=== PATIENT | male | born 1980 | race Two or more races ===

== ENCOUNTER 2017-08-29 14:39 | Inpatient (IN) | payer MEDICAID ==
[~2017-08-29] VITALS: Ht 177.8 cm; Wt 84.4 kg
[2017-08-29] MEDS ORDERED: Dexamethasone 4mg/ml vial IVP ONE (15:45)
--- NOTE | 2017-08-29 16:07 | Emergency Room Report ---
History of Present Illness General Chief Complaint: General Complaint Source: Patient Present Illness HPI Patient is a 37-year-old male who presented after increased difficulty breathing. Patient recently had a x-ray imaging done at the his doctor's office. The patient was noted to have some difficulty breathing worse with supine position. Patient was noted to be taking multiple pain medications. He had the surgery 1 day prior to arrival. Patient is being followed by Dr. Omar Christianson Allergies: Coded Allergies: No Known Allergies (Unverified , 08/29/17) Patient History Reviewed Nursing Documentation: PMH: Agreed; PSxH: Agreed Nursing Documentation-PMH Past Medical History: No Stated History Review of Systems All Other Systems: negative except mentioned in HPI Physical Exam Vital Signs Date Time Temp Pulse Resp B/P (MAP) Pulse Ox O2 Delivery O2 Flow Rate FiO2 08/29/17 14:42 98.4 83 22 124/73 96 Room Air 98.4 Sp02 EP Interpretation: reviewed, normal General Appearance: normal inspection, well appearing, no apparent distress, alert, GCS 15 Head: atraumatic ENT: normal ENT inspection, hearing grossly normal, normal voice Neck: normal inspection, supple, no bony tend, limited range of motion Respiratory: normal inspection, lungs clear, normal breath sounds, no respiratory distress, no retraction, no wheezing Cardiovascular #1: regular rate, rhythm, no edema Gastrointestinal: normal inspection, normal bowel sounds, non tender, soft, no guarding, no hernia Genitourinary: no CVA tenderness Musculoskeletal: normal inspection, back normal, normal range of motion Neurologic: normal inspection, alert, oriented x3, responsive, department head III-XII nml as tested, speech normal Psychiatric: normal inspection, judgement/insight normal, mood/affect normal Skin: no rash, other - slight swelling to surgical site, no drainage noted Medical Decision Making Diagnostic Impression: Primary Impression: Hematoma Additional Impression: Status post neck surgery, follow-up exam ER Course Patient presented for neck pain and difficulty breathing postoperatively. Differential diagnosis included was not limited to abscess, retropharyngeal hematoma, epiglottitis, allergic reaction among others.Because of complexity of patient's case laboratory testing and imaging studies were ordered. The patient was seen by ENT Dr. Jaime Bertrand. The patient was noted to have some soft tissue swelling near incision. The patient be admitted for further monitoring and repeat x-rays. Patient was given IV Decadron as well as IV antibiotics. At time of admission patient shows no evidence of airway obstruction or stridor. Given the patient's prior imaging showing some hematoma patient will be watched inpatient in the hospital. The patient's physician does not appear to be infected however he was given Decadron due inflammation of the neck.Dr. Ken Mann was contacted for inpatient management Labs Test 08/29/17 15:38 White Blood Count 10.3 K/UL (4.8-10.8) Red Blood Count 6.81 M/UL (4.70-6.10) Hemoglobin 13.2 G/DL (14.2-18.0) Hematocrit 42.4 % (42.0-52.0) Mean Corpuscular Volume 62 FL (80-99) Mean Corpuscular Hemoglobin 19.4 PG (27.0-31.0) Mean Corpuscular Hemoglobin Concent 31.1 G/DL (32.0-36.0) Red Cell Distribution Width 12.4 % (11.6-14.8) Platelet Count 123 K/UL (150-450) Mean Platelet Volume 15.6 FL (6.5-10.1) Neutrophils (%) (Auto) 60.5 % (45.0-75.0) Lymphocytes (%) (Auto) 28.1 % (20.0-45.0) Monocytes (%) (Auto) 9.0 % (1.0-10.0) Eosinophils (%) (Auto) 1.0 % (0.0-3.0) Basophils (%) (Auto) 1.3 % (0.0-2.0) Prothrombin Time 10.4 SEC (9.30-11.50) Prothromb Time International Ratio 1.0 (0.9-1.1) Activated Partial Thromboplast Time 29 SEC (23-33) Sodium Level 139 MMOL/L (136-145) Potassium Level 3.8 MMOL/L (3.5-5.1) Chloride Level 102 MMOL/L (98-107) Carbon Dioxide Level 28 MMOL/L (21-32) Anion Gap 9 mmol/L (5-15) Blood Urea Nitrogen 9 mg/dL (7-18) Creatinine 0.9 MG/DL (0.55-1.30) Estimat Glomerular Filtration Rate > 60 mL/min (>60) Glucose Level 89 MG/DL (74-106) Calcium Level 8.5 MG/DL (8.5-10.1) Total Bilirubin 0.9 MG/DL (0.2-1.0) Aspartate Amino Transf (AST/SGOT) 22 U/L (15-37) Alanine Aminotransferase (ALT/SGPT) 41 U/L (12-78) Alkaline Phosphatase 54 U/L (46-116) Total Protein 7.5 G/DL (6.4-8.2) Albumin 4.1 G/DL (3.4-5.0) Globulin 3.4 g/dL Albumin/Globulin Ratio 1.2 (1.0-2.7) Last Vital Signs Date Time Temp Pulse Resp B/P (MAP) Pulse Ox O2 Delivery O2 Flow Rate FiO2 08/29/17 14:42 98.4 83 22 124/73 96 Room Air 98.4 Status: unchanged Disposition: ADMITTED INPATIENT Condition: Stable TenzinJulio Aug 29, 2017 16:07
[2017-08-29 16:09] LABS: BASOPHILS % (AUTO) 1.3 % (0.0-2.0); HEMATOCRIT 42.4 % (42.0-52.0); HEMOGLOBIN 13.2 G/DL (14.2-18.0); LYMPHOCYTES % (AUTO) 28.1 % (20.0-45.0); MEAN CORPUSCULAR VOLUME 62 FL (80-99); NEUTROPHILS % (AUTO) 60.5 % (45.0-75.0); PLATELET COUNT 123 K/UL (150-450); RED BLOOD COUNT 6.81 M/UL (4.70-6.10); RED CELL DISTRIBUTION WIDTH 12.4 % (11.6-14.8); WHITE BLOOD COUNT 10.3 K/UL (4.8-10.8)
[2017-08-29 16:16] LABS: ANION GAP 9 mmol/L (5-15); BLOOD UREA NITROGEN 9 mg/dL (7-18); CALCIUM 8.5 MG/DL (8.5-10.1); CARBON DIOXIDE 28 MMOL/L (21-32); CHLORIDE 102 MMOL/L (98-107); CREATININE 0.9 MG/DL (0.55-1.30); POTASSIUM 3.8 MMOL/L (3.5-5.1); SODIUM 139 MMOL/L (136-145)
[2017-08-29 16:20] LABS: ALANINE AMINOTRANSFERASE 41 U/L (12-78); ALBUMIN 4.1 G/DL (3.4-5.0); ALBUMIN/GLOBULIN RATIO 1.2 (1.0-2.7); ALKALINE PHOSPHATASE 54 U/L (46-116); ASPARTATE AMINO TRANSFERASE 22 U/L (15-37); BILIRUBIN,TOTAL 0.9 MG/DL (0.2-1.0)
[2017-08-29 16:27] VITALS: BP 127/77
[2017-08-29] MEDS ORDERED: NORCO 10-325 T1 EACH ORAL (16:32)
[2017-08-29] MEDS ORDERED: Ampicillin/Sulbactam Sod 3 GM in NS 110 ML IVPB ONE (17:00)
[2017-08-29] MEDS ORDERED: MORPHINE 44 MG/1 ML IV (17:37)
[2017-08-29] MEDS ORDERED: XANAX1 MG ORAL (17:38)
[2017-08-29] MEDS ORDERED: Morphine Sulfate 4mg/ml Inj IVP ONE (17:45)
[2017-08-29 18:17] VITALS: BP 118/71
[2017-08-29] MEDS ORDERED: Morphine Sulfate 4mg/ml Inj IVP PRN (18:45)
[2017-08-29 20:00] VITALS: BP 120/73
--- NOTE | 2017-08-29 21:06 | History & Physical ---
History and Physical History & Physicial Job 3 [id number] Ken Mann MD Aug 29, 2017 21:06
[2017-08-29] MEDS: Morphine Sulfate 4mg/ml Inj IVP PRN (21:25)
--- NOTE | 2017-08-29 22:23 | General Progress Note ---
Assessment/Plan Status: stable Status Narrative Pt will most probably be just fine Have suggested he stay overnight for some better pain control and Decadron with tapering. Assessment/Plan As in status narrative above. Subjective Date patient seen: Aug 29, 2017 Time patient seen: 03:30 ROS Limited/Unobtainable: No Constitutional: Reports: weakness HEENT: Reports: throat pain, throat swelling Cardiovascular: Reports: no symptoms Respiratory: Reports: no symptoms, shortness of breath Gastrointestinal/Abdominal: Reports: no symptoms Genitourinary: Reports: no symptoms Neurologic/Psychiatric: Reports: no symptoms Endocrine: Reports: no symptoms Hematologic/Lymphatic: Reports: no symptoms Allergies: Coded Allergies: No Known Allergies (Unverified , 08/29/17) Subjective pt had cervical sine surgery yesterday, concerned about pain and swelling. States hard to swallow and breathe, Is able to count to 10 laying down and take pain pills. Pain 7/10 per pt girlfriend who is translating. Objective Last 24 Hour Vital Signs Date Time Temp Pulse Resp B/P (MAP) Pulse Ox O2 Delivery O2 Flow Rate FiO2 08/29/17 21:55 96.3 08/29/17 21:25 96.3 08/29/17 20:00 96.3 78 18 120/73 97 Room Air 96.3 08/29/17 18:30 98.4 71 17 118/71 97 Room Air 98.4 08/29/17 18:17 98.4 71 17 118/71 97 Room Air 98.4 08/29/17 18:06 98.4 08/29/17 17:36 98.4 08/29/17 16:27 98.4 78 20 127/77 100 Room Air 98.4 08/29/17 14:42 98.4 83 22 124/73 96 Room Air 98.4 Laboratory Tests 08/29/17 15:38: White Blood Count 10.3, Red Blood Count 6.81H, Hemoglobin 13.2L, Hematocrit 42.4 , Mean Corpuscular Volume 62L, Mean Corpuscular Hemoglobin 19.4L, Mean Corpuscular Hemoglobin Concent 31.1L, Red Cell Distribution Width 12.4, Platelet Count 123L, Mean Platelet Volume 15.6H, Neutrophils (%) (Auto) 60.5, Lymphocytes (%) (Auto) 28.1, Monocytes (%) (Auto) 9.0, Eosinophils (%) (Auto) 1.0, Basophils (%) (Auto) 1.3, Prothrombin Time 10.4, Prothromb Time International Ratio 1.0, Activated Partial Thromboplast Time 29, Sodium Level 139, Potassium Level 3.8, Chloride Level 102, Carbon Dioxide Level 28, Anion Gap 9, Blood Urea Nitrogen 9, Creatinine 0.9, Estimat Glomerular Filtration Rate > 60, Glucose Level 89, Calcium Level 8.5, Total Bilirubin 0.9, Aspartate Amino Transf (AST/SGOT) 22, Alanine Aminotransferase (ALT/SGPT) 41, Alkaline Phosphatase 54, Total Protein 7.5, Albumin 4.1, Globulin 3.4, Albumin/Globulin Ratio 1.2 Height (Feet): 5 Height (Inches): 10.00 Weight (Pounds): 186 EENT: TMs normal, pharynx normal Neck: stiff neck Lymphatic: normal anterior cervical (L), normal posterior cervical (L), normal posterior cervical (R), normal submandibular (L), normal submandibular (R), normal supraclavicular (L), normal supraclavicular (R); tender anterior cervical (R) Objective Neck: tender right lower neck, normal post op swelling cross lateral of neck from Dr. Christianson office-indicates minimal swelling in area of surgery. Fiberoptic laryngoscopy-WNL, no airway obstruction. MALLIKA COYLE Aug 29, 2017 22:23
--- NOTE | 2017-08-29 22:45 | History and Physical Report ---
DATE OF ADMISSION: 08/29/2017 CHIEF COMPLAINT: Difficulty swallowing. HISTORY OF PRESENT ILLNESS: This is a 37 years old Spanish gentleman with past medical history significant for cervical disk disease, status post anterior cervical surgery, who presented to the hospital as per request by Dr. Omar Christianson after he was noted to have difficulty breathing and difficulty swallowing. The patient had a cervical spine x-ray done showed that the retropharyngeal hematoma and subsequently the patient was advised to come to the emergency room. Shortly after initial evaluation in the emergency, the patient was admitted to the hospital with a retropharyngeal hematoma postop. PAST MEDICAL HISTORY AND PAST SURGICAL HISTORY: Significant for cervical disk disease, [facility] MEDICATIONS: At home, please refer to medication reconciliation. ALLERGIES: No known drug allergies. SOCIAL HISTORY: Denies any smoking, alcohol, or drugs. FAMILY HISTORY: Noncontributory. REVIEW OF SYSTEMS: Mostly as above. Denies any dysuria, frequency, hematuria, or hematochezia. Complaining about difficulty swallowing food. Complaining about shortness of breath. Denies any hemoptysis or hematochezia. Denies any suicidal or homicidal ideations. PHYSICAL EXAMINATION: VITAL SIGNS: On admission, temperature 98.4, pulse of 83, respiration 22, and blood pressure 124/73. GENERAL: The patient is awake, responsive, no acute distress. HEAD AND NECK: Pupils are reactive to light. Extraocular movements are intact. NECK: Supple. Tender to touch and dressing on the right side of neck was noted. No sign of infection. No sign of discharge. LUNGS: Good air entry. No wheezing or rales. HEART: S1, S2. Regular rhythm. No gallops. ABDOMEN: Soft, nondistended, and nontender. Positive bowel sounds. EXTREMITIES: No cyanosis, clubbing, or edema. NEUROLOGIC: Cranial nerves II through XII grossly intact. Motor is 5/5 in all extremities. LABORATORY AND DIAGNOSTIC DATA: Laboratory on admission, sodium 139, potassium 3.8, chloride 102, bicarbonate 28, BUN 9, creatinine 0.9, and glucose is 89. Liver functions essentially unremarkable. WBC of 10.3, hemoglobin 13, hematocrit 42, and platelets is 123. PT of 10, INR 1.0, and PTT of 29. ASSESSMENT: 1. Neck pain as well as difficulty swallowing, most likely secondary to retropharyngeal hematoma. 2. History of cervical disk disease, status post cervical disk surgery. PLAN: Admit the patient to Med/Surg. We will follow up laboratory. Decadron IV every eight hours, taper down. Follow up with Dr. Omar Christianson on recommendations from Spine Surgery as well as Dr. Jaime Bertrand from ENT. Start the patient on IV fluids. Code Status, Full code. DVT prophylaxis is SCD. Ken Mann M.D. DR: JHONNY JOB#: [id number] CC:
[2017-08-29] MEDS: Dexamethasone 4mg/ml vial IVP SCH (23:34)
[2017-08-30] VITALS: BP 117/68
[2017-08-30 04:00] VITALS: BP 114/60
[2017-08-30] MEDS: Morphine Sulfate 4mg/ml Inj IVP PRN ×3 (05:17→11:53)
--- NOTE | 2017-08-30 06:00 | Operative Note - Dictated ---
DATE OF OPERATION: 08/29/2017 NOTE: POOR AUDIO SURGEON: Jaime Bertrand M.D. INDICATION FOR PROCEDURE: The patient complained of swelling in throat, status post 24 hours cervical spine surgery. PREOPERATIVE DIAGNOSIS: Airway obstruction. POSTOPERATIVE DIAGNOSIS: No airway obstruction. FINDINGS: Swelling in the lateral incision site on the right neck. No blockage of the airway. PROCEDURE: Fiberoptic laryngoscopy. TECHNIQUE: The patient was prepped and draped in the usual manner. Time-out was performed. All agreed as to procedure to be done. Flexible scope was placed through the mouth without difficulty. The hypopharynx down to 1 cm below TVF was visualized both by me and the ER MD. The scope was removed. Sponge and needle count was correct. ESTIMATED BLOOD LOSS: Zero. COUNTS: None. DRAINS: None. Jaime Bertrand M.D. DR: IWONA JOB#: [id number] CC: PIO
[2017-08-30 07:22] LABS: BASOPHILS % (AUTO) 0.5 % (0.0-2.0); HEMATOCRIT 42.1 % (42.0-52.0); HEMOGLOBIN 13.3 G/DL (14.2-18.0); LYMPHOCYTES % (AUTO) 13.6 % (20.0-45.0); MEAN CORPUSCULAR VOLUME 62 FL (80-99); MONOCYTES % (AUTO) 3.4 % (1.0-10.0); NEUTROPHILS % (AUTO) 82.4 % (45.0-75.0); PLATELET COUNT 140 K/UL (150-450); RED BLOOD COUNT 6.75 M/UL (4.70-6.10); RED CELL DISTRIBUTION WIDTH 12.1 % (11.6-14.8); WHITE BLOOD COUNT 10.8 K/UL (4.8-10.8)
[2017-08-30 07:38] LABS: ALANINE AMINOTRANSFERASE 30 U/L (12-78); ALBUMIN 3.9 G/DL (3.4-5.0); ALBUMIN/GLOBULIN RATIO 1.1 (1.0-2.7); ALKALINE PHOSPHATASE 55 U/L (46-116); ANION GAP 10 mmol/L (5-15); ASPARTATE AMINO TRANSFERASE 20 U/L (15-37); BILIRUBIN,TOTAL 0.7 MG/DL (0.2-1.0); BLOOD UREA NITROGEN 12 mg/dL (7-18); CALCIUM 8.8 MG/DL (8.5-10.1); CARBON DIOXIDE 27 MMOL/L (21-32); CHLORIDE 103 MMOL/L (98-107); POTASSIUM 4.6 MMOL/L (3.5-5.1); SODIUM 140 MMOL/L (136-145)
[2017-08-30 08:00] VITALS: BP 117/69
[2017-08-30 08:03] LABS: PHOSPHORUS 3.2 MG/DL (2.5-4.9)
[2017-08-30] MEDS: Dexamethasone 4mg/ml vial IVP SCH (08:31)
--- NOTE | 2017-08-30 09:03 | Orthopedic Spine Progress Note ---
Ortho Spine - Progress Note Subjective Symptoms: improved - as compared to pre-op Objective Vital Signs: Last 24 Hour Vital Signs Date Time Temp Pulse Resp B/P (MAP) Pulse Ox O2 Delivery O2 Flow Rate FiO2 08/30/17 08:00 97.9 72 18 117/69 100 Room Air 97.9 08/30/17 05:47 96.7 08/30/17 04:00 96.7 75 18 114/60 97 96.7 08/30/17 02:04 95.8 08/30/17 01:34 95.8 08/30/17 00:00 95.8 78 19 117/68 98 Room Air 95.8 08/29/17 21:25 96.3 08/29/17 20:00 96.3 78 18 120/73 97 Room Air 96.3 08/29/17 18:30 98.4 71 17 118/71 97 Room Air 98.4 08/29/17 18:17 98.4 71 17 118/71 97 Room Air 98.4 08/29/17 18:06 98.4 08/29/17 17:36 98.4 08/29/17 16:27 98.4 78 20 127/77 100 Room Air 98.4 08/29/17 14:42 98.4 83 22 124/73 96 Room Air 98.4 I&O: Intake and Output 08/29/17 08/30/17 19:00 07:00 Intake Total 775 ml Balance 775 ml Intake Oral 250 ml IV Total 525 ml # Voids 1 1 Wound: clean, intact Drains: none Neuro Status: normal - except uln N numbness r side not improved since preop Additional Comments: breathing NL standing, supine significantly better Plan Plan: discharge plan Additional Comments: improved with steroids. OK to DC home if ok with ent IRVING WALLACE Aug 30, 2017 09:03
--- NOTE | 2017-08-30 10:57 | General Progress Note ---
Progress Note Progress Note ENT- I cannot be until after 6 PM today. Pt notes indicate he is better and he was kept as a precaution, therefore, per ENT, he may go home today without seeing me. He can always see me in the office or local ER if symptoms recur. MALLIKA COYLE Aug 30, 2017 10:57
--- NOTE | 2017-08-30 14:33 | Discharge Summary ---
Discharge Summary Hospital Course Date of Admission Aug 29, 2017 at 16:26 Date of Discharge Aug 30, 2017 at 12:04 Admitting Diagnosis retropharyngeal hematoma HPI Nimesh Chappell is a 37 year old male who was admitted on Aug 29, 2017 at 16:26 for Retropharyngeal Hematoma Hospital Course job # [id number] Discharge Discharge Disposition Patient was discharged to Home (01) Ken Mann MD Aug 30, 2017 14:33
--- NOTE | 2017-08-30 15:00 | Consultation ---
DATE OF CONSULTATION: 08/29/2017 NOTE: POOR AUDIO CONSULTING PHYSICIAN: Jaime Bertrand M.D. REFERRING PHYSICIANS: Omar Christianson M.D. and Ken Mann M.D. REASON FOR CONSULTATION: The patient had a artificial disc placed in the neck yesterday with a right anterior approach. He then saw the orthopedic surgeon today complaining of swelling and pain and difficulty breathing, although he is able to talk. The physician got a lateral x-ray showing some swelling, nothing significant. Dr. Christianson then called me and recommend the patient be seen in the emergency room approximately an hour and a half later by the time the patient got there. The patient is able to talk without difficulty lying down, although there was some swelling in the right neck over the incision site. ALLERGIES: No known drug allergies. MEDICATIONS: Include Decadron, , Zofran, and morphine sulfate to control pain. PHYSICAL EXAMINATION: VITAL SIGNS: He is 177.8 cm, weight 84.368 kilograms and BMI 26.7. Please note that his girlfriend did place , but she spoke much better [place]ian and is fluent in translating in Farsi. HEENT: Head is normocephalic. Eyes, PERRLA. EOMI, but a little he was unsure of the names. Mouth is normal. Nose normal. NECK: Tegaderm dressing. Small amount of swelling and some tenderness. Fiberoptic laryngoscopy indicated that vocal cord. ASSESSMENT AND PLAN: I think he has some pain from the surgery and some swelling. It did not appear , although he is getting a followup lateral x-ray tonight, which is not available as of 10 o'clock to my recollection . Thank you very much for asking my opinion in the care and treatment of this patient. Jaime Bertrand M.D. DR: IWONA JOB#: [id number] CC:
[2017-08-30] MEDS ORDERED: Dexamethasone 4mg/ml vial IVP SCH (16:00)
--- NOTE | 2017-08-30 22:00 | Discharge Summary ---
DATE OF ADMISSION: 08/29/2017 DATE OF DISCHARGE: 08/30/2017 HOSPITAL COURSE: This is a 37-year-old [place] gentleman with past medical history significant for cervical disc surgery due to the cervical discopathy by Dr. Omar Christianson, who presented to the hospital, complained about the difficulty swallowing and shortly after initial evaluation, the patient was admitted to the hospital with possible retropharyngeal hematoma. Throughout the hospital course, the patient was followed with Dr. Jaime Bertrand from ENT and Dr. Omar Christianson from Spine Surgery. The patient underwent fiberoptic laryngoscopy, finding was swelling of the lateral incision site on the right neck. No blockage of the airway. The patient's status improved, was able to tolerate p.o. intake and subsequently was discharged home to be followed up with Dr. Omar Christianson as outpatient. FINAL DIAGNOSES: 1. Cervical disc disease due to the cervical discopathy. 2. Retropharyngeal hematoma. MEDICATION ON DISCHARGE: Continue discharge medication list. ACTIVITY: As tolerated. DIET: Regular diet as tolerated. FOLLOWUP: The patient was advised to follow up with Dr. Omar Christianson within one week week. Ken Mann M.D. DR: ANTOINE JOB#: [id number] CC:
--- NOTE | 2017-08-31 08:42 | Diagnostic Imaging Report ---
Indication: Neck pain, status post cervical surgery one day prior Technique: 2 views of the neck with soft tissue technique Comparison: none Findings: Air is seen within the anterolateral soft tissues on the right, presumably retained air from the surgical exposure. There is anterior fusion hardware bridging C5-6, and a disc prosthesis at C4-5. There is mild prevertebral soft tissue swelling. No significant airway narrowing. Epiglottis is unremarkable. No evidence of glottic narrowing or hypopharyngeal distention Impression: Routine postsurgical changes, as described. No definite acute process This agrees with the preliminary interpretation provided overnight by [facility] teleradiology service.
== END 2017-08-30 12:04 | disposition home or self-care (01) | DRG 813 ==
LOC: EMR 16:25 → 4E 16:26 → EDBEDREQ 16:53
PROC: 0CJS8ZZ Inspection of Larynx, Via Natural or Artificial Opening Endoscopic (ICD-10-PCS; principal; 2017-08-29)
DX: L76.32 Postprocedural hematoma of skin and subcutaneous tissue following other procedure (principal); R13.10 Dysphagia, unspecified; Y83.8 Other surgical procedures as the cause of abnormal reaction of the patient, or of later complication, without mention of misadventure at the time of the procedure; Z87.39 Personal history of other diseases of the musculoskeletal system and connective tissue
CPT/HCPCS: 36415; 70360; 80053; 83735; 84100; 85025; 85610; 85730